=== PATIENT | female | born 1960 | race Caucasian/White ===

== ENCOUNTER → 2017-09-27 | Outpatient (CLI) | payer OTHER ==
[~2017-09-27] MED LIST: CPR250T PO; HYDR-91 PO; METF500T4 PO; SPIR100T2 PO
== END ==
LOC: PREOP 05:41
PROVIDERS: ATTEND Otolaryngology Otolaryngology/Facial Plastic Surgery
DX: Z01.818 Encounter for other preprocedural examination (principal); J32.9 Chronic sinusitis, unspecified

== ENCOUNTER 2018-05-07 16:00 | Outpatient (CLI) | payer OTHER ==
[~2018-05-07 16:00] MED LIST changes: -METF500T4 PO; +METF500T5 PO; -SPIR100T2 PO; +SPIR100T4 PO
== END 2018-05-07 16:25 | disposition home or self-care (01) ==
LOC: SLEEP 16:00
PROVIDERS: ATTEND Otolaryngology Otolaryngology/Facial Plastic Surgery
DX: G47.33 Obstructive sleep apnea (adult) (pediatric) (principal); G47.10 Hypersomnia, unspecified; R06.83 Snoring

== ENCOUNTER 2018-09-02 13:00 | Outpatient (CLI) | payer OTHER ==
[~2018-09-02] VITALS: Ht 172.7 cm; Wt 72.6 kg
[~2018-09-02 13:00] MED LIST changes: +METF-397 PO; -METF500T5 PO
[2018-09-02 13:18] VITALS: BP 129/68
[2018-09-02 13:59] LABS: BASOPHILS % (AUTO) 0 % (0-10); EOSINOPHILS % (AUTO) 0 % (0-10); HEMATOCRIT 40 % (35-52); HEMOGLOBIN 13.3 G/DL (11.5-16.0); LYMPHOCYTES # (AUTO) 1.2 X 10^3 (1.0-4.0); LYMPHOCYTES % (AUTO) 13 % (12-44); MEAN CORPUSCULAR HEMOGLOBIN 31 PG (25-34); MEAN CORPUSCULAR HGB CONC 33 G/DL (32-36); MEAN CORPUSCULAR VOLUME 91 FL (80-99); MEAN PLATELET VOLUME 11.4 FL (7.4-10.4); MONOCYTES # (AUTO) 0.3 X 10^3 (0.0-1.0); MONOCYTES % (AUTO) 3 % (0-12); NEUTROPHILS # (AUTO) 8.4 X 10^3 (1.8-7.8); NEUTROPHILS % (AUTO) 84 % (42-75); PLATELET COUNT 226 10^3/uL (130-400); RED BLOOD COUNT 4.36 10^6/uL (4.35-5.85); RED CELL DISTRIBUTION WIDTH 15.2 % (10.0-14.5); WHITE BLOOD COUNT 9.9 10^3/uL (4.3-11.0)
--- NOTE | 2018-09-02 14:08 | Diagnostic Imaging Report ---
INDICATION: Preop for sinus surgery. TIME OF EXAMINATION: 02:05 p.m. COMPARISON: No prior studies are available for comparison. FINDINGS: The heart size is normal. The pulmonary vascularity is unremarkable. The lungs are clear. No infiltrate, effusion or pneumothorax is detected. IMPRESSION: No acute cardiopulmonary process is detected. Dictated by: Dictated on workstation # [id number]
[2018-09-02 14:17] LABS: BUN/CREATININE RATIO 19; CALCIUM 9.5 MG/DL (8.5-10.1); CARBON DIOXIDE 22 MMOL/L (21-32); CHLORIDE 107 MMOL/L (98-107); CREATININE SERUM 0.89 MG/DL (0.60-1.30); GFR ESTIMATED > 60; GLUCOSE 131 MG/DL (70-105); POTASSIUM 4.3 MMOL/L (3.6-5.0); SODIUM 141 MMOL/L (135-145)
== END 2018-09-02 13:40 | disposition home or self-care (01) ==
LOC: PREOP 13:00
PROVIDERS: ATTEND Otolaryngology Otolaryngology/Facial Plastic Surgery
DX: Z01.810 Encounter for preprocedural cardiovascular examination (principal); Z01.811 Encounter for preprocedural respiratory examination; Z01.812 Encounter for preprocedural laboratory examination; Z11.2 Encounter for screening for other bacterial diseases; J32.9 Chronic sinusitis, unspecified; J34.3 Hypertrophy of nasal turbinates; K13.79 Other lesions of oral mucosa
CPT/HCPCS: 36415; 71046; 80048; 85025; 87081; 93005

== ENCOUNTER 2018-09-05 06:18 | Day surgery (SDC) | payer OTHER ==
[~2018-09-05] VITALS: Ht 172.7 cm; Wt 74.4 kg
[2018-09-05 06:35] VITALS: BP 134/78
[2018-09-05] MEDS ORDERED: fentaNYL INJECTION 100 MCG/2 ML AMP ONE (06:52)
[2018-09-05] MEDS ORDERED: ROCURONIUM 10 MG/ML 5 ML SYRINGE IV ONE (06:52)
[2018-09-05] MEDS ORDERED: ONDANSETRON 4 MG/2 ML (SDV) Z0FRAN ONE (06:52)
[2018-09-05] MEDS ORDERED: LIDOCAINE PF 2% 5 ML (XYLOCAINE) VIAL ONE (06:52)
[2018-09-05] MEDS ORDERED: proPOfol 200 MG/20 ML (DIPRIVAN) VIAL IV ONE (06:52)
[2018-09-05] MEDS ORDERED: DEXAMETHASONE 10 MG/ML (DECADRON) 1 ML VIAL ONE (06:52)
[2018-09-05] MEDS ORDERED: MIDAZOLAM 2 MG/2 ML (VERSED) VIAL ONE (06:53)
[2018-09-05] MEDS ORDERED: COCAINE HCL 4% 2 ML SYR ONE (07:00)
[2018-09-05] MEDS ORDERED: BSS 15 ML ONE (07:00)
[2018-09-05] MEDS ORDERED: AMPICILLIN/SULBACTAM INJECTION 1.5 GM in NS (IVPB) 100 ML IV ONE (07:00)
[2018-09-05] MEDS ORDERED: HYDROCORTISONE 100 MG/2 ML (Solu-CORTEF) VIAL IV ONE (07:00)
[2018-09-05] MEDS ORDERED: PHENYLEPHRINE 0.5% NASAL SPR (NEO-SYNEPHRINE) REG ONE (07:01)
[2018-09-05] MEDS ORDERED: NS IV 500 ML 500 ML ONE (07:01)
[2018-09-05] MEDS ORDERED: LIDOCAINE/EPI 1%-1:100,000 (XYLOCAINE) 20ML ONE (07:01)
--- NOTE | 2018-09-05 07:05 | Progress Note-Pre Operative ---
Pre-Operative Progress Note H&P Reviewed The H&P was reviewed, patient examined and no changes noted. Date Seen by Provider: Sep 05, 2018 Time Seen by Provider: 06: Date H&P Reviewed: Sep 05, 2018 Time H&P Reviewed: :30 Pre-Operative Diagnosis: Bilat Chronic Sinussitis, hype of inf turbs, dev septum , elongated uvula ROSA Rodriguez MD Sep 05, 2018 7:05 am
[2018-09-05] MEDS ORDERED: CATHETER FLUSH 10 ML SYR IV PRN (07:15)
[2018-09-05] MEDS: LACTATED RINGERS 1,000 ML IV PRN ×2 (07:25→08:38)
[2018-09-05] MEDS ORDERED: SEVOFLURANE (ULTANE) 15 ML INHAL SOLN ONE ×5 (08:19→09:03)
[2018-09-05] MEDS ORDERED: PHENYLEPHRINE 100 MCG/ML 10 ML (ANESTHESIA) SYR ONE (08:38)
[2018-09-05] MEDS ORDERED: NEOSTIGMINE 1 MG/ML 5 ML SYRINGE ONE (09:12)
[2018-09-05] MEDS ORDERED: GLYCOPYRROLATE 0.2 MG/ML (ROBINUL) 2 ML VIAL ONE (09:12)
[2018-09-05] MEDS ORDERED: ONDANSETRON 4 MG/2 ML (SDV) Z0FRAN IVP PRN (09:30)
[2018-09-05] MEDS ORDERED: HYDROmorphone 2 MG/ML VIAL (DILAUDID) IV ONE (09:30)
[2018-09-05] MEDS ORDERED: D5 1/2 NS W/KCL 20 MEQ/L 1,000 ML IV SCH (09:54)
--- NOTE | 2018-09-05 09:54 | Progress Note-Post Operative ---
Post-Operative Progess Note Surgeon (s)/Buttonhole Marker (s) Surgeon ROSA BOB MD Buttonhole Marker n/a Pre-Operative Diagnosis Bilat Chronic Sinussitis, hype of inf turbs, dev septum , elongated uvula w Post-Operative Diagnosis same Post-Op Procedure Note Date of Procedure: Sep 05, 2018 Name of Procedure Performed: Bilat ESS, Bialt Red of Inf Trubinates Uvulectomy Description & Findings Description and Findings: n/a Anesthesia Type get Estimated Blood Loss minimal Packing none. Specimen(s) collected/removed uvula ROSA BOB MD Sep 05, 2018 9:54 am
[2018-09-05] MEDS ORDERED: predniSONE 20 MG TAB PO ONE (10:00)
[2018-09-05] MEDS ORDERED: LIDOCAINE 2% VISCOUS 15 ML UDC PO ONE (10:00)
[2018-09-05] MEDS ORDERED: ACETAMINOPHEN 325 MG TABLET PO PRN (10:00)
[2018-09-05] MEDS ORDERED: PROMETHAZINE INJ 25 MG/ML (PHENERGAN) AMP IVP PRN (10:00)
[2018-09-05 10:20] VITALS: BP 113/68
[2018-09-05 10:25] VITALS: BP 113/68
[2018-09-05 10:50] VITALS: BP 122/72
[2018-09-05] MEDS ORDERED: TRAM50TA2 PO (11:15)
[2018-09-05] MEDS ORDERED: PRD20T PO (11:15)
[2018-09-05] MEDS ORDERED: AMOX-355 PO (11:15)
[2018-09-05] MEDS ORDERED: TETRACAINESUCKERS MT (11:15)
[2018-09-05 11:20] VITALS: BP 118/68
--- NOTE | 2018-09-05 13:34 | Anesthesia-General Post-Op ---
General Patient Condition Mental Status/LOC: Same as Preop Cardiovascular: Satisfactory Nausea/Vomiting: Absent Respiratory: Satisfactory Pain: Controlled Complications: Absent Post Op Complications Complications None Follow Up Care/Instructions Patient Instructions None needed. Anesthesia/Patient Condition Patient Condition Patient is doing well, no complaints, stable vital signs, no apparent adverse anesthesia problems. No complications reported per nursing. AMARI ARANGO CRNA Sep 05, 2018 13:34
== END 2018-09-05 11:45 | disposition home or self-care (01) ==
LOC: SDC 06:18
PROVIDERS: ATTEND Otolaryngology Otolaryngology/Facial Plastic Surgery
DX: J32.0 Chronic maxillary sinusitis (principal); J32.2 Chronic ethmoidal sinusitis; J34.3 Hypertrophy of nasal turbinates; K13.79 Other lesions of oral mucosa
CPT/HCPCS: 88302; 88305

== ENCOUNTER → 2020-04-23 | Outpatient (CLI) | payer BC ==
[~2020-04-23] MED LIST changes: +AMOX-355 PO; +PRD20T PO; +TETRACAINESUCKERS MT; +TRM50T PO
--- NOTE | 2020-04-23 16:53 | Diagnostic Imaging Report ---
PROCEDURE: US thyroid. TECHNIQUE: Multiple real-time grayscale images were obtained of the thyroid in various projections. INDICATION: Thyroid nodules, follow-up. COMPARISON: Correlation is made with prior thyroid ultrasound from 05/30/2016. FINDINGS: Right lobe of the thyroid measures 5.7 x 2.2 x 1.7 cm and the left lobe measures 5.7 x 1.8 x 1.9 cm. Isthmus is 3 mm in thickness. Multiple bilateral thyroid nodules are present. Majority of nodules are circumscribed. There are two tiny 3-4 mm cysts in the mid and lower pole of right lobe. There are two cysts in the mid and upper pole of left lobe, measuring 5 mm and 8 mm. A mixed echogenicity nodule in the lower pole of the left lobe is noted, measuring 8 mm. There is an area of hypoechogenicity in the lower pole of the right lobe. It is uncertain if this represents a true nodule versus heterogeneous tissue. This area measures 1.5 x 1.2 x 1.1 cm. This was present on prior exam but not described as a nodule. IMPRESSION: Bilateral subcentimeter thyroid nodules. There is an area of heterogeneity in lower pole of right lobe, similar to prior exam. Continued follow-up ultrasound in 6-12 months is recommended to show continued stability. Dictated by: Dictated on workstation # [id number]
== END ==
LOC: RAD 14:25
PROVIDERS: ATTEND Otolaryngology Otolaryngology/Facial Plastic Surgery
DX: E04.2 Nontoxic multinodular goiter (principal)
CPT/HCPCS: 76536

== ENCOUNTER 2021-07-11 05:54 | Outpatient (CLI) | payer BC ==
[~2021-07-11] VITALS: Ht 172.7 cm; Wt 74.9 kg
[2021-07-11] MEDS ORDERED: ESTR10TA9 VG (11:52)
== END 2021-07-11 14:50 | disposition home or self-care (01) ==
LOC: PREOP 05:54
PROVIDERS: ATTEND Internal Medicine
DX: Z01.818 Encounter for other preprocedural examination (principal)

== ENCOUNTER 2021-07-15 07:33 | Day surgery (SDC) | payer BC ==
--- NOTE | 2021-07-08 06:19 | HISTORY AND PHYSICAL ---
DATE OF SERVICE: COLONOSCOPY HISTORY AND PHYSICAL HISTORY: The patient is a 60-year-old white female seen for wellness evaluation being set up for a surveillance colonoscopy. Last colonoscopy was 5 years ago and she had tubular adenoma removed from the distal sigmoid colon. She reports that she feels well. She has noted no blood in her stool, has had no melena or bright red blood per rectum. Denies any change in bowel habit. She voiced no complaints. PAST MEDICAL HISTORY: Relatively unremarkable. PAST SURGICAL HISTORY: She underwent total abdominal hysterectomy, ovaries were left. She has had past transvaginal ultrasound where ovaries were not noted, postmenopausal. SOCIAL HISTORY: She has no past smoking history. Is employed and reports no significant alcohol intake. FAMILY HISTORY: Updated and there is no family history for known GI tract malignancy. There is a strong family history for type 2 diabetes. Father had essential tremor. She has 4 brothers, several with type 2 diabetes, one of complications of alcoholism. She has 2 sisters, one with thyroid cancer, both essentially alive and well otherwise. She is fully vaccinated for COVID. PHYSICAL EXAMINATION: GENERAL: Reveals a white female, appears to be in no acute distress. VITAL SIGNS: Weight 170 pounds, down a pound and a half from office weight a little over a year ago her last visit at 170, blood pressure 110/70. HEENT: Unremarkable. Sclerae nonicteric. NECK: Revealed no JVD, adenopathy or bruits. CHEST: Clear to auscultation. CARDIOVASCULAR: Reveals a regular rate and rhythm without murmur, S3 or S4. ABDOMEN: Soft, supple without mass, organomegaly or tenderness. EXTREMITIES: Reveal no cyanosis, clubbing or edema. SKIN: Evaluation revealed no suspicious nevi. LABORATORY DATA: Blood tests including a TSH were obtained, just below the lower end of normal range at 0.44, but unchanged from 3 years ago. Her chemistry panel was normal and a nonfasting lipid panel revealed a triglyceride level of 289, HDL of 61 and an LDL of 115 with total cholesterol of 234. ASSESSMENT AND PLAN: Stable wellness evaluation. Did discuss the importance of exercise, portion control and the patient is being set up for surveillance colonoscopy. Prep instructions with the Suprep kit were given and questions were answered. We did recommend a return visit in one year for routine wellness exam. Job ID: [id number] DocumentID: [id number] Dictated Date: 07/05/2021 10:04:45 Extract Wringer Date: 07/05/2021 10:48:17 Dictated By: USMAN ENGEL MD
[~2021-07-15] VITALS: Ht 172.7 cm; Wt 74.9 kg
[~2021-07-15 07:33] MED LIST changes: +ESTR10TA9 VG
[2021-07-15] MEDS ORDERED: LACTATED RINGERS 1,000 ML IV STA (07:37)
[2021-07-15] MEDS ORDERED: LACTATED RINGERS 1,000 ML IV ONE (07:42)
[2021-07-15] MEDS ORDERED: LIDOCAINE JELLY 2% 6 ML SYRINGE MM PRN (07:45)
[2021-07-15 07:50] VITALS: BP 123/68
[2021-07-15] MEDS ORDERED: proPOfol 200 MG/20 ML (DIPRIVAN) VIAL IV ONE ×2 (07:56→08:44)
--- NOTE | 2021-07-15 08:31 | Pre-Op Note & Conscious Sedat ---
Pre-Operative Progress Note H&P Reviewed The H&P was reviewed, patient examined and no changes noted. Date H&P Reviewed: Jul 15, 2021 Time H&P Reviewed: 08:31 Conscious Sedation Pre-Proced ASA Score 1 For ASA 3 and 4: Consider anesthesia and medical clearance. Also, for patients with a history of failed moderate sedation consider anesthesia. Airway Lungs Heart ASA score ASA 1: a normal healthy patient ASA 2: a patient with a mild systemic disease (mid diabetes, controlled hypertension, obesity ASA 3: a patient with a severe systemic disease that limits activity (angina, COPD, prior Myocardial infarction) ASA 4: a patient with an incapacitating disease that is a constant threat to life (CHF, renal failure) ASA 5: a moribund patient not expected to survive 24 hrs. (ruptured aneurysm) ASA 6: a declared brain- patient whose organs are being harvested. For emergent operations, add the letter E after the classification Mallampati Classification Grade 2 Sedation Plan Analgesia, Amnesia, Plan communicated to team members, Discussed options with patient/fam, Discussed risks with patient/fam The patient is an appropriate candidate to undergo the planned procedure, sedation, and anesthesia. The patient immediately re-assessed prior to indication. USMAN ENGEL MD Jul 15, 2021 08:31
[2021-07-15 09:00] VITALS: BP 95/53
[2021-07-15 09:05] VITALS: BP_SYST 106; BP_SYST 90; BP_DIAS 52; BP_DIAS 56
[2021-07-15 09:20] VITALS: BP 111/51
[2021-07-15 09:22] VITALS: BP 111/51
--- NOTE | 2021-07-15 12:24 | Anesthesia-General Post-Op ---
MAC Patient Condition Mental Status/LOC: Same as Preop Cardiovascular: Satisfactory Nausea/Vomiting: Absent Respiratory: Satisfactory Pain: Controlled Complications: Absent Post Op Complications Complications None Follow Up Care/Instructions Patient Instructions None needed. Anesthesiology Discharge Order Discharge Order Patient is doing well, no complaints, stable vital signs, no apparent adverse anesthesia problems. No complications reported per nursing. AMARI ARANGO CRNA Jul 15, 2021 12:24
--- NOTE | 2021-07-15 15:29 | OPERATIVE REPORT ---
DATE OF SERVICE: COLONOSCOPY SUMMARY INDICATION FOR THE PROCEDURE: Screening. PRIMARY CARE PROVIDER: Dr. Macarena Mendoza. DESCRIPTION OF PROCEDURE: The patient was placed in the left lateral decubitus position. Prior to undergoing colonoscopy, digital rectal evaluation was performed. Anal sphincter tone was normal and the perianal reflexes was intact. No abnormalities were noted on digital inspection of anal canal or distal rectal vault. The colonoscope was inserted into the rectum and under direct visualization advanced to cecum. The cecum was identified by identification of ileocecal valve and cecal strap. Photographic documentation was obtained. Quality of prep was good. FINDINGS: There was no evidence for internal or external hemorrhoids. The rectum was unremarkable. Mild diverticular disease confined to the sigmoid colon was present without evidence for diverticulitis. No other sigmoid colonic abnormalities were appreciated. The descending colon, splenic flexure, transverse colon, hepatic flexure, ascending colon and cecum were unremarkable. ASSESSMENT: Mild diverticular disease confined to the sigmoid colon was present with otherwise normal colonoscopy to the cecum. We would advocate consideration for repeat screening colonoscopy in 10 years. Job ID: [id number] DocumentID: [id number] Dictated Date: 07/15/2021 09:03:59 Claim Taker Date: 07/15/2021 15:29:16 Dictated By: USMAN ENGEL MD
== END 2021-07-15 09:40 | disposition home or self-care (01) ==
LOC: ENDO 07:33
PROVIDERS: ATTEND Internal Medicine
DX: Z12.11 Encounter for screening for malignant neoplasm of colon (principal); K57.30 Diverticulosis of large intestine without perforation or abscess without bleeding; Z79.899 Other long term (current) drug therapy; Z98.890 Other specified postprocedural states

== ENCOUNTER → 2022-05-12 | Outpatient (CLI) | payer BC ==
--- NOTE | 2022-05-12 17:40 | Diagnostic Imaging Report ---
PROCEDURE: US Thyroid. TECHNIQUE: Multiple real-time grayscale images were obtained of the thyroid in various projections. INDICATION: Multinodular goiter. COMPARISON: 04/23/2020 and 05/30/2016. FINDINGS: The right lobe of the thyroid gland measures 5.6 x 1.9 x 1.9 cm. 1.5 x 1.4 x 1.0 cm hypoechoic solid nodule with indistinct margins is noted within the posterior aspect of the inferior pole of the right thyroid lobe. This has not significantly changed since the prior examination in 2019. Additional 0.5 cm cystic and spongiform hypoechoic nodules within the right thyroid lobe are again identified. No new right thyroid nodule identified. The left lobe of the thyroid gland measures 5.2 x 1.7 x 1.8 cm. Subcentimeter spongiform and cystic nodules within the left thyroid lobe are again identified and not significantly changed from the prior examination. No new left thyroid nodules. The isthmus is unremarkable. IMPRESSION: 1.5 cm TI-RADS 4 nodule within the posterior aspect of the inferior pole of the right thyroid lobe, not significantly changed from the prior examination. Given size and morphology, fine-needle aspiration could be considered. However, given stability since 2019, additional follow-up ultrasound of the thyroid gland in 1-2 years could also be considered. Additional stable subcentimeter bilateral thyroid nodules appear stable from the prior examination without new thyroid nodule. Dictated by: Dictated on workstation # [id number]
== END ==
LOC: RAD 14:46
PROVIDERS: ATTEND Otolaryngology Otolaryngology/Facial Plastic Surgery
DX: E04.2 Nontoxic multinodular goiter (principal)
CPT/HCPCS: 76536